=== PATIENT | male | born 1955 | race Hispanic/Latino ===

== ENCOUNTER 2016-12-24 07:02 | Observation (INO) | payer BC ==
[2016-12-24 07:18] VITALS: BMI 37.7
--- NOTE | 2016-12-24 07:27 | ED PDOC ---
Arrival/HPI - General Chief Complaint: Abdominal Pain Time Seen by Provider: 12/24/16 07:12 Historian: Patient - History of Present Illness Narrative History of Present Illness (Text): 12/24/16 07:17 Orlando Kelley is a 61 year old male, whose past medical history includes left -sided nephrectomy, hernias, and A fib, who presents to the emergency department complaining of right-sided inguinal pain for 1 hour. Patient states that he has never experienced these symptoms before. Patient denies any fever, chills, chest pain, shortness of breath, nausea, vomiting, diarrhea, urinary symptoms, back pain, neck pain, headache, dizziness, or any other complaints. Time/Duration: 1 hour Symptom Onset: Gradual Symptom Course: Unchanged Severity Level: Mild Activities at Onset: Rest Context: Home Past Medical History - Provider Review Nursing Documentation Reviewed: Yes - Cardiac Hx Cardiac Disorders: No - Pulmonary Hx Respiratory Disorders: No - Neurological Hx Neurological Disorder: No - HEENT Hx HEENT Disorder: No - Renal Hx Renal Disorder: Yes Hx Renal Cancer: Yes - Endocrine/Metabolic Hx Endocrine Disorders: No - Hematological/Oncological Hx Blood Disorders: No - Integumentary Hx Dermatological Disorder: No - Musculoskeletal/Rheumatological Hx Musculoskeletal Disorders: No - Gastrointestinal Hx Gastrointestinal Disorders: No - Genitourinary/Gynecological Hx Genitourinary Disorders: No - Psychiatric Hx Psychophysiologic Disorder: No Hx Substance Use: No Family/Social History - Physician Review Nursing Documentation Reviewed: Yes Family/Social History: No Known Family HX Smoking Status: Never Smoked Hx Alcohol Use: No Hx Substance Use: No Allergies/Home Meds Allergies/Adverse Reactions: Allergies No Known Allergies Allergy (Verified 12/24/16 07:15) Home Medications: Home Meds Medication Instructions Recorded Confirmed No Known Home Med 12/24/16 12/24/16 Review of Systems - Physician Review All systems were reviewed & negative as marked: Yes - Review of Systems Constitutional: absent: Fevers, Night Sweats Eyes: absent: Vision Changes ENT: absent: Hearing Changes Respiratory: absent: SOB Cardiovascular: absent: Chest Pain, Other Gastrointestinal: Other (Right-sided inguinal pain) Genitourinary Male: absent: Dysuria, Urinary Output Changes Musculoskeletal: absent: Back Pain, Neck Pain Skin: absent: Rash, Pruritis Neurological: absent: Headache, Dizziness Endocrine: absent: Diaphoresis Hemo/Lymphatic: absent: Adenopathy Psychiatric: absent: Depression Physical Exam Vital Signs Reviewed: Yes Vital Signs Temp Pulse Resp BP Pulse Ox 12/24/16 12:20 85 16 156/85 H 98 12/24/16 09:35 82 16 152/100 H 96 12/24/16 07:15 98 F 81 16 175/94 H 97 Temperature: Afebrile Blood Pressure: Normal Pulse: Regular Respiratory Rate: Normal Appearance: Positive for: Well-Appearing, Non-Toxic, Comfortable Pain Distress: None Mental Status: Positive for: Alert and Oriented X 3 - Systems Exam Head: Present: Atraumatic, Normocephalic Pupils: Present: PERRL Extroacular Muscles: Present: EOMI Conjunctiva: Present: Normal Mouth: Present: Moist Mucous Membranes Neck: Present: Normal Range of Motion Respiratory/Chest: Present: Clear to Auscultation, Good Air Exchange. No: Respiratory Distress, Accessory Muscle Use Cardiovascular: Present: Regular Rate and Rhythm, Normal S1, S2. No: Murmurs Abdomen: Present: Tenderness (Right-sided inguinal tenderness). No: Hernias Back: Present: Normal Inspection Upper Extremity: Present: Normal Inspection. No: Cyanosis, Edema Lower Extremity: Present: Normal Inspection. No: Edema Neurological: Present: GCS=15, CN II-XII Intact, Speech Normal Skin: Present: Warm, Dry, Normal Color. No: Rashes Psychiatric: Present: Alert, Oriented x 3, Normal Insight, Normal Concentration Medical Decision Making - Lab Interpretations I have reviewed the lab results: Yes - Medication Orders Current Medication Orders: Discontinued Medications Iohexol (Omnipaque 240 (50 Ml)) Confirm Administered Dose 50 ml .ROUTE .STK-MED ONE Stop: 12/24/16 07:50 Ketorolac Tromethamine (Toradol) 30 mg IVP STAT STA Stop: 12/24/16 07:24 Last Admin: 12/24/16 07:42 Dose: 30 mg Morphine Sulfate (Morphine) 4 mg IVP STAT STA Stop: 12/24/16 08:59 Last Admin: 12/24/16 09:15 Dose: 4 mg Morphine Sulfate (Morphine) 4 mg IVP STAT STA Stop: 12/24/16 12:30 Last Admin: 12/24/16 12:59 Dose: 4 mg ED OBSERVATION Discharge: Yes Date of observation admission: 12/24/16 Time of observation admission: 07:17 - Observation admission statement Patient is being placed in observation because:: 12/24/16 07:17 Impression: 61 year old male complaining of right-sided inguinal pain for 1 hour. Differential Diagnosis include but are not limited to: Inguinal Hernia r/o incarceration vs. abdominal mass vs. musculoskeletal - Goals of Observation Goals of observation are:: Plan: -- EKG -- Abdomen and Pelvis CT with PO & IV Contrast -- Urinalysis -- Labs -- Toradol -- Reassess and disposition - Progress Note Progress Note: Progress Notes: EKG: Ordered, reviewed, and independently interpreted the EKG. Rate : 92 BPM Rhythm : A fib Interpretation : No ST-segment elevations or depressions, no T-wave inversions, normal intervals. Comparison : No previous EKG for comparison. 12/24/16 11:[address]: Creator : Zen Tesfaye MD FINDINGS: LOWER THORAX: Unremarkable. LIVER:Multiple hepatic cysts are observed.. No gross lesion or ductal dilatation. GALLBLADDER AND BILE DUCTS:Unremarkable. PANCREAS:Unremarkable. No gross lesion or ductal dilatation. SPLEEN:Unremarkable. ADRENALS:Unremarkable. No mass. KIDNEYS AND URETERS:Status post left nephrectomy. Right renal cysts measuring up to 2 centimeters anteriorly. VASCULATURE:Unremarkable. No aortic aneurysm. BOWEL:Mild colonic diverticulosis. APPENDIX:Unremarkable. Normal appendix. PERITONEUM:Unremarkable. No free fluid. No free air. LYMPH NODES:Unremarkable. No enlarged lymph nodes. BLADDER:Unremarkable. REPRODUCTIVE:Unremarkable. BONES:No acute fracture. OTHER FINDINGS:Moderate left omental fat containing inguinal hernia. No bowel involvement. IMPRESSION: Moderate left omental fat containing inguinal hernia. No incarcerated bowel segment. Status post left nephrectomy. 12/24/16 11:42 Patient says the pain is pulsating at times intermittently. On reexamination, there is no abdominal or back tenderness. FROM of hip. No testicular tenderness or swelling. Patient states there's a family history of an uncle that had an abdominal bleed. I reviewed the exam with Dr. Grey who states that there is no evidence suggesting mesenteric ischemia or AVM. Patient has an elevated creatinine and h/ o nephrectomy and he doesn't recommend a repeat CT with IV contrast because of this history and b/c there is no suspicion of any findings on exam. I discussed this with patient and he will f/u with his primary care doctor. 12/24/16 12:06 Patients that his creatinine is at baseline 1.6. He understands the risks of IV contrast and that this can cause further worsening of his kidney and or acute failure and he still wants to get the CT with IV contrast to r/o mesenteric ischemia. Patient does have a h/o afib and pain out of proportion to exam to it is reasonable and indicated. 12/24/16 14:13 Case was discussed with Radiologist who does not recommend CT angio for same reasons stated above. Patient agrees not have CT at this time after discussing this with him again. Discussed case with Dr. Sage, Surgery who came to evaluate patient. He agrees that we can admit under his service for observation for intractable abdominal pain and hold off on CT for now. - Scribe Statement The provider has reviewed the documentation as recorded by the Scribe Trisha Borrero Provider Scribe Attestation: All medical record entries made by the Scribe were at my direction and personally dictated by me. I have reviewed the chart and agree that the record accurately reflects my personal performance of the history, physical exam, medical decision making, and the department course for this patient. I have also personally directed, reviewed, and agree with the discharge instructions and disposition. Disposition/Present on Arrival - Present on Arrival Any Indicators Present on Arrival: No History of DVT/PE: No History of Uncontrolled Diabetes: No Urinary Catheter: No History of Decub. Ulcer: No History Surgical Site Infection Following: None - Disposition Have Diagnosis and Disposition been Completed?: Yes Diagnosis: Abdominal pain Disposition: HOSPITALIZED Disposition Time: 11:48 Patient Plan: Observation Patient Problems: Current Active Problems Problem Status Onset Abdominal pain Acute Condition: FAIR
[2016-12-24 07:39] LABS: ADD MANUAL DIFF? NO
[2016-12-24] MEDS ORDERED: Iohexol 240 (50 ml) ONE (07:49)
[2016-12-24 07:53] LABS: BASO # 0.03 K/mm3 (0.0-2.0); BASO % 0.3 % (0.0-3.0); EOS # 0.2 (0.0-0.7); GRAN # 6.51 (1.4-6.5); GRAN % 72.2 % (50.0-68.0); HEMATOCRIT 45.5 % (42.0-52.0); LYMPH # 1.7 (1.2-3.4); LYMPH % 19.2 % (22.0-35.0); MEAN CORPUSCULAR HGB CONC 34.5 g/dl (31.0-37.0); MEAN PLATELET VOLUME 9.6 fl (7.0-11.0); MONO # 0.6 (0.1-0.6); MONO % 6.3 % (1.0-6.0); PLATELET COUNT 154 10^3/uL (120.0-450.0)
[2016-12-24 07:59] LABS: ALB/GLOB RATIO 1.3 (1.1-1.8); BILIRUBIN,TOTAL 1.2 mg/dL (0.2-1.3); CALCIUM 9.2 mg/dL (8.4-10.5); POTASSIUM 4.3 mmol/L (3.6-5.0)
[2016-12-24 08:00] LABS: INR 1.03 (0.93-1.08); PARTIAL THROMBOPLASTIN TIME 26.9 Seconds (23.7-30.8)
[2016-12-24] MEDS ORDERED: Morphine 4 mg/ml ISec IVP STA ×2 (08:58→12:29)
--- NOTE | 2016-12-24 11:02 | CT ---
PROCEDURE: CT Abdomen and Pelvis without intravenous contrast HISTORY: R groin/abd pain r/o inc hernia r/o mass COMPARISON: None. TECHNIQUE: Technique. Contrast Dose: Radiation dose: Total exam DLP = 1390 mGy-cm. This CT exam was performed using one or more of the following dose reduction techniques: Automated exposure control, adjustment of the mA and/or kV according to patient size, and/or use of iterative reconstruction technique. FINDINGS: LOWER THORAX: Unremarkable. LIVER: Multiple hepatic cysts are observed.. No gross lesion or ductal dilatation. GALLBLADDER AND BILE DUCTS: Unremarkable. PANCREAS: Unremarkable. No gross lesion or ductal dilatation. SPLEEN: Unremarkable. ADRENALS: Unremarkable. No mass. KIDNEYS AND URETERS: Status post left nephrectomy. Right renal cysts measuring up to 2 centimeters anteriorly. VASCULATURE: Unremarkable. No aortic aneurysm. BOWEL: Mild colonic diverticulosis. APPENDIX: Unremarkable. Normal appendix. PERITONEUM: Unremarkable. No free fluid. No free air. LYMPH NODES: Unremarkable. No enlarged lymph nodes. BLADDER: Unremarkable. REPRODUCTIVE: Unremarkable. BONES: No acute fracture. OTHER FINDINGS: Moderate left omental fat containing inguinal hernia. No bowel involvement. IMPRESSION: Moderate left omental fat containing inguinal hernia. No incarcerated bowel segment. Status post left nephrectomy.
[2016-12-24 11:12] LABS: URINE BILIRUBIN NEGATIVE (NEGATIVE); URINE BLOOD TRACE-LYSED (NEGATIVE); URINE GLUCOSE (UA) NEGATIVE (NEGATIVE); URINE KETONE NEGATIVE (NEGATIVE); URINE LEUKOCYTE ESTERASE NEGATIVE Leu/uL (NEGATIVE); URINE PROTEIN TRACE mg/dL (<30 mg/dL); URINE UROBILINOGEN 0.2 E.U./dL (<1 E.U./dL)
[2016-12-24 11:19] LABS: URINE APPEARANCE CLEAR (CLEAR); URINE BACTERIA TRACE (NEG); URINE COLOR YELLOW (YELLOW); URINE EPITHELIAL CELLS 0 - 2 /hpf (0-5); URINE RBC 0 - 2 /hpf (0-2); URINE WBC NEGATIVE /hpf (0-6)
--- NOTE | 2016-12-24 15:31 | CP.PCM.CON ---
History of Present Illness - History of Present Illness History of Present Illness: General Surgery Consult Note for Dr. Sage CC: Abdominal pain X 1 day This is a 61M with a PMH of Afib s/p ablation and kidney CA s/p left partial nephrectomy. Who presents to the ED due to abdominal pain that woke him from sleep last night. It describes the pain as coming and going in 3 minute intervals. When the pain is present he describes the pain as being sharp. Nothing makes it worse however the pain medication makes it better. He denies any changes in bowel habits and continue to have flatus. He denies any nausea, vomiting, , fevers, chills, shortness of breath, chest pain or palpitations. He had an EKG done in the Ed significant for Afib, he had a CT abdomen done which showed an omentum containing left sided hernia and a left sided post operative kidney. PMH: See above PSH: partial right nephrectomy, afib ablation ALL: NKDA Social: Denies etoh, tobacco, drugs Review of Systems - Review of Systems All systems: reviewed and no additional remarkable complaints except Past Patient History - Past Social History Smoking Status: Never Smoked - CARDIAC Hx Cardiac Disorders: No - PULMONARY Hx Respiratory Disorders: No - NEUROLOGICAL Hx Neurological Disorder: No - HEENT Hx HEENT Problems: No - RENAL Hx Chronic Kidney Disease: Yes Hx Renal (Kidney) Cancer: Yes - ENDOCRINE/METABOLIC Hx Endocrine Disorders: No - HEMATOLOGICAL/ONCOLOGICAL Hx Blood Disorders: No - INTEGUMENTARY Hx Dermatological Problems: No - MUSCULOSKELETAL/RHEUMATOLOGICAL Hx Musculoskeletal Disorders: No - GASTROINTESTINAL Hx Gastrointestinal Disorders: No - GENITOURINARY/GYNECOLOGICAL Hx Genitourinary Disorders: No - PSYCHIATRIC Hx Psychophysiologic Disorder: No Hx Substance Use: No - SURGICAL HISTORY Hx Surgeries: Yes (left kidney removal) Meds Allergies/Adverse Reactions: Allergies Allergy/AdvReac Type Severity Reaction Status Date / Time No Known Allergies Allergy Verified 12/24/16 07:15 Physical Exam - Constitutional Appears: Non-toxic, No Acute Distress - Head Exam Head Exam: ATRAUMATIC, NORMOCEPHALIC - Eye Exam Eye Exam: EOMI - ENT Exam ENT Exam: Mucous Membranes Moist - Respiratory Exam Respiratory Exam: NORMAL BREATHING PATTERN - Cardiovascular Exam Cardiovascular Exam: REGULAR RHYTHM - GI/Abdominal Exam GI & Abdominal Exam: Soft. absent: Diminished Bowel Sounds, Distended, Firm, Guarding, Hernia, Rigid - Neurological Exam Neurological exam: Alert, Oriented x3 - Psychiatric Exam Psychiatric exam: Normal Affect, Normal Mood - Skin Skin Exam: Dry, Intact Results - Vital Signs Recent Vital Signs: Last Vital Signs Temp 98 F 12/24/16 07:15 Pulse 81 12/24/16 14:44 Resp 16 12/24/16 14:44 BP 144/86 12/24/16 14:44 Pulse Ox 96 12/24/16 14:44 - Labs Result Diagrams: 12/24/16 07:38 12/24/16 07:38 Labs: Laboratory Results - last 24 hr 12/24/16 12/24/16 12/24/16 07:38 07:38 07:38 WBC 9.0 RBC 5.23 Hgb 15.7 Hct 45.5 MCV 87.0 MCH 30.0 MCHC 34.5 RDW 14.0 Plt Count 154 MPV 9.6 Gran % 72.2 H Lymph % (Auto) 19.2 L [place] % (Auto) 6.3 H Eos % (Auto) 2.0 Baso % (Auto) 0.3 Gran # 6.51 H Lymph # 1.7 [place] # 0.6 Eos # 0.2 Baso # 0.03 PT 11.1 INR 1.03 APTT 26.9 Sodium 139 Potassium 4.3 Chloride 107 Carbon Dioxide 23 Anion Gap 13 BUN 23 H Creatinine 1.6 H Est GFR ( Amer) 54 Est GFR (Non-Af Amer) 44 Random Glucose 107 Lactic Acid Calcium 9.2 Total Bilirubin 1.2 AST 22 ALT 39 Alkaline Phosphatase 51 Total Protein 7.0 Albumin 3.9 Globulin 3.1 Albumin/Globulin Ratio 1.3 Lipase 53 Urine Color Urine Appearance Urine pH Ur Specific [place] Urine Protein Urine Glucose (UA) Urine Ketones Urine Blood Urine Nitrate Urine Bilirubin Urine Urobilinogen Ur Leukocyte Esterase Urine RBC Urine WBC Ur Epithelial Cells Urine Bacteria 12/24/16 12/24/16 11:03 12:39 WBC RBC Hgb Hct MCV MCH MCHC RDW Plt Count MPV Gran % Lymph % (Auto) [place] % (Auto) Eos % (Auto) Baso % (Auto) Gran # Lymph # [place] # Eos # Baso # PT INR APTT Sodium Potassium Chloride Carbon Dioxide Anion Gap BUN Creatinine Est GFR ( Amer) Est GFR (Non-Af Amer) Random Glucose Lactic Acid 0.7 Calcium Total Bilirubin AST ALT Alkaline Phosphatase Total Protein Albumin Globulin Albumin/Globulin Ratio Lipase Urine Color Yellow Urine Appearance Clear Urine pH 6.0 Ur Specific [place] 1.020 Urine Protein Trace H Urine Glucose (UA) Negative Urine Ketones Negative Urine Blood Trace-lysed H Urine Nitrate Negative Urine Bilirubin Negative Urine Urobilinogen 0.2 Ur Leukocyte Esterase Negative Urine RBC 0 - 2 Urine WBC Negative Ur Epithelial Cells 0 - 2 Urine Bacteria Trace - Imaging and Cardiology CT scan - abdomen Status: Image reviewed by me, Report reviewed by me Assessment & Plan - Assessment and Plan (Free Text) Assessment: This is a 61M with a PMH of Afib presenting with Abdominal pain IVF IV ABX Sips No surgical managment at this time Medical managment per primary team, if anticoagulation needed consider heparin due to ease of reversability if OR is needed during hospital course. D/W Dr. Chu Woodward PGY-4
--- NOTE | 2016-12-24 15:47 | CARD ---
APPROVED REPORT EKG Measurement Heart [id number] <Conclusion> Atrial fibrillation Abnormal ECG
[2016-12-24] MEDS ORDERED: HYDROmorphone 0.5 mg/0.5 ml ISec IVP PRN (16:29)
[2016-12-24] MEDS ORDERED: metroNIDAZOLE IV 500 mg/100 ml 500 MG/100 ML BAG IVPB STA (16:30)
[2016-12-24] MEDS ORDERED: Sodium Chloride 0.9% 1,000 ML IV SCH (16:30)
[2016-12-24 16:54] VITALS: BP 145/101; RESP 20
[2016-12-24] MEDS ORDERED: Pneumococcal 23-Valent Vaccine IM ONE (18:15)
--- NOTE | 2016-12-25 07:16 | CP.PCM.PN ---
Subjective - Date & Time of Evaluation Date of Evaluation: 12/25/16 Time of Evaluation: 06:58 - Subjective Subjective: General Surgery Progress For Dr. Sage This 61M was seen and examined this Am at bedside. He reports that his pain is less intense than yesterday but still present. No acute events overnight. .No fevers, chills nausea vomiting or diarrhea. Has BMs and and flatus. Objective - Vital Signs/Intake and Output Vital Signs (last 24 hours): Temp Pulse Resp BP Pulse Ox 97.9 F 80 20 145/101 H 97 12/24/16 18:04 12/24/16 18:04 12/24/16 18:04 12/24/16 18:04 12/24/16 16:53 Intake and Output: 12/24/16 12/25/16 18:59 06:59 Intake Total 20 Balance 20 - Medications Medications: Current Medications Hydromorphone HCl (Dilaudid) 0.5 mg IVP Q4H PRN PRN Reason: Pain, moderate (4-7) Sodium Chloride (Sodium Chloride 0.9%) 1,000 mls @ 150 mls/hr IV .[id number] LAURA Last Admin: 12/24/16 17:09 Dose: 150 mls/hr - Labs Labs: 12/24/16 07:38 12/24/16 07:38 PT 11.1 Seconds (9.9-11.8) 12/24/16 07:38 INR 1.03 (0.93-1.08) 12/24/16 07:38 APTT 26.9 Seconds (23.7-30.8) 12/24/16 07:38 - Constitutional Appears: Non-toxic, No Acute Distress - Head Exam Head Exam: ATRAUMATIC, NORMOCEPHALIC - Eye Exam Eye Exam: EOMI - ENT Exam ENT Exam: Mucous Membranes Moist - Respiratory Exam Respiratory Exam: NORMAL BREATHING PATTERN - Cardiovascular Exam Cardiovascular Exam: REGULAR RHYTHM - GI/Abdominal Exam GI & Abdominal Exam: Soft. absent: Distended, Firm, Guarding, Rigid, Tenderness , Hernia, Rebound - Extremities Exam Extremities Exam: Normal Inspection - Neurological Exam Neurological Exam: Alert, Awake, Normal Gait - Psychiatric Exam Psychiatric exam: Normal Affect, Normal Mood - Skin Skin Exam: Dry, Intact, Normal Color Assessment and Plan - Assessment and Plan (Free Text) Assessment: This is a 61M with a PMH of Afib presenting with Abdominal pain IVF IV ABX Sips No surgical managment at this time Medical managment per primary team, if anticoagulation needed consider heparin due to ease of reversability if OR is needed during hospital course. D/W Dr. Chu Woodward PGY-6
[2016-12-25 08:38] VITALS: PULSE 81; TEMP 98; O2SAT 100
[2016-12-25 09:20] LABS: HEMATOCRIT 45.7 % (42.0-52.0); MEAN CELL VOLUME 86.7 fL (80.0-105.0); MEAN CORPUSCULAR HEMOGLOBIN 29.8 pg (25.0-35.0); MEAN CORPUSCULAR HGB CONC 34.4 g/dl (31.0-37.0); MEAN PLATELET VOLUME 9.7 fl (7.0-11.0); RED CELL DISTRIBUTION WIDTH 13.7 % (11.5-14.5); WHITE BLOOD COUNT 8.5 10^3/ul (4.5-11.0)
[2016-12-25 09:29] LABS: ALB/GLOB RATIO 1.2 (1.1-1.8); BILIRUBIN,TOTAL 1.2 mg/dL (0.2-1.3); CALCIUM 8.8 mg/dL (8.4-10.5); POTASSIUM 4.3 mmol/L (3.6-5.0); TOTAL PROTEIN 6.7 g/dL (5.8-8.3)
[2016-12-25] MEDS ORDERED: metroNIDAZOLE IV 500 mg/100 ml 500 MG/100 ML BAG IVPB SCH (14:00)
== END 2016-12-25 12:18 | disposition home or self-care (01) ==
LOC: ED 07:02 → EROBSV 07:30 → ERH 14:40 → 5RNO 15:12
PROVIDERS: ADMIT Surgery; ATTEND Surgery
DX: I48.91 Unspecified atrial fibrillation (principal); K40.90 Unilateral inguinal hernia, without obstruction or gangrene, not specified as recurrent; R10.9 Unspecified abdominal pain; N18.9 Chronic kidney disease, unspecified; Z85.528 Personal history of other malignant neoplasm of kidney; Z90.5 Acquired absence of kidney; R40.2412 Glasgow coma scale score 13-15, at arrival to emergency department; K57.30 Diverticulosis of large intestine without perforation or abscess without bleeding
CPT/HCPCS: 36415; 74176; 80053; 81001; 83605; 83690; 85025; 85027; 85610; 85730; 93005; 96365; 96375; 96376; 99285; G0378; J1885; J2270; J7040; Q9966